=== PATIENT | female | born 1995 | race Native Hawaiian/Other Pacific Islander ===

== ENCOUNTER 2018-08-05 14:29 | Inpatient (IN) | payer OTHER ==
[2018-08-05 14:44] VITALS: O2SAT 100
--- NOTE | 2018-08-05 15:06 | ED PDOC ---
HPI: Psych/Substance Abuse Time Seen by Provider: 08/05/18 14:44 Chief Complaint (Nursing): Psychiatric Evaluation Chief Complaint (Provider): Psychiatric Evaluation History Per: Patient History/Exam Limitations: no limitations Onset/Duration Of Symptoms: Days (x4) Additional Complaint(s): 23 year old female presents to the ED for a psychiatric evaluation. Patient states she has not been on her [place], Lamictal and another medication that starts with "R". Patient reports she felt good but she has not been able to afford the medications. She sees a private psychiatrist for bipolar disorder. She further states, on Wednesday, she felt as if she was not able to speak and not able to comprehend what she was reading. She felt her left ear was being "cut up into little pieces". She also reports hearing her roommate call her even though he wasn't home. Patient also states whenever she looked outside of the building, she feels like she can fly but does not want to as it can hurt her. Denies suicidal ideation, homicidal ideation, headache, or hearing changes. Past Medical History Reviewed: Historical Data, Nursing Documentation, Vital Signs Vital Signs: Last Vital Signs Temp 99.1 F 08/05/18 14:37 Pulse 64 08/05/18 14:37 Resp 16 08/05/18 14:37 BP 127/63 08/05/18 14:37 Pulse Ox 100 08/05/18 14:37 - Medical History PMH: No Chronic Diseases - Surgical History Surgical History: No Surg Hx - Family History Family History: States: Unknown Family Hx - Home Medications Home Medications: Ambulatory Orders Medication Instructions Recorded DiphenhydrAMINE [Benadryl] 25 mg PO Q6 PRN 08/05/18 Wailuku Carbonate [Wailuku 600 mg PO HS 08/05/18 Carbonate 300MG] Risperidone [Risperdal] 0.75 mg PO HS 08/05/18 lamoTRIgine [Lamictal] 100 mg PO QAM 08/05/18 - Allergies Allergies/Adverse Reactions: Allergies Allergy/AdvReac Type Severity Reaction Status Date / Time No Known Allergies Allergy Verified 08/05/18 14:36 Review of Systems ROS Statement: Except As Marked, All Systems Reviewed And Found Negative Neurological: Negative for: Headache Psych: Positive for: Other (Hallucinations; no hearing changes). Negative for: Suicidal ideation (or homicidal ideation) Physical Exam - Reviewed Nursing Documentation Reviewed: Yes Vital Signs Reviewed: Yes - Physical Exam Appears: Positive for: No Acute Distress Head Exam: Positive for: ATRAUMATIC, NORMOCEPHALIC Skin: Positive for: Normal Color, Warm, Dry Eye Exam: Positive for: Normal appearance ENT: Positive for: Normal ENT Inspection Cardiovascular/Chest: Positive for: Regular Rate, Rhythm Respiratory: Positive for: Normal Breath Sounds. Negative for: Wheezing, Respiratory Distress Gastrointestinal/Abdominal: Positive for: Normal Exam, Soft. Negative for: Tenderness Extremity: Positive for: Normal ROM Neurologic/Psych: Positive for: Alert, Oriented (x3), Mood/Affect (calm and cooperative). Negative for: Motor/Sensory Deficits - Laboratory Results Result Diagrams: 08/05/18 17:54 08/05/18 17:54 - ECG O2 Sat by Pulse Oximetry: 100 (RA) Pulse Ox Interpretation: Normal Medical Decision Making Medical Decision Making: Initial Impression: Psychiatric Evaluation Initial Plan: --Crisis evaluation --ED urine --1:1 observation 17:09 Patient evaluated by Stephania who spoke with Dr. Tate who requests patient to be admitted with diagnosis of major depressive disorder. Scribe Attestation: Documented by David Bruce acting as a scribe for Amos STOLL Provider Scribe Attestation: All medical record entries made by the Scribe were at my direction and persona mimiy dictated by me. I have reviewed the chart and agree that the record accurately reflects my personal performance of the history, physical exam, medical decision making, and the department course for this patient. I have also personally directed, reviewed, and agree with the discharge instructions and disposition. Disposition - Clinical Impression Clinical Impression: Major depressive disorder - Patient ED Disposition Is Patient to be Admitted: Yes - Disposition Disposition Time: 17:09 Condition: FAIR
[2018-08-05 18:17] LABS: BASO # 0.1 K/uL (0.0-0.2); BASO % 0.9 % (0.0-2.0); EOS # 0.2 K/uL (0.0-0.7); EOS % 2.4 % (0.0-4.0); HEMOGLOBIN 12.7 g/dL (12.0-16.0); LYMPH # 2.5 K/uL (1.0-4.3); LYMPH % 36.1 % (20.0-40.0); MEAN CELL VOLUME 92.9 fl (81.0-99.0); MEAN CORPUSCULAR HEMOGLOBIN 30.8 pg (27.0-31.0); MEAN CORPUSCULAR HGB CONC 33.2 g/dL (33.0-37.0); MEAN PLATELET VOLUME 7.8 fl (7.2-11.7); MONO # 0.5 K/uL (0.0-0.8); MONO % 7.3 % (0.0-10.0); NEUT # 3.7 K/uL (1.8-7.0); NEUT % 53.3 % (50.0-75.0); RBC 4.12 Mil/uL (3.80-5.20); RED CELL DISTRIBUTION WIDTH 13.5 % (11.5-14.5); WHITE BLOOD COUNT 6.9 K/uL (4.8-10.8)
[2018-08-05 18:20] LABS: SQUAMOUS EPITHIAL 1 /hpf (0-5); URINE BILIRUBIN NEGATIVE (NEGATIVE); URINE BLOOD NEGATIVE (NEGATIVE); URINE CLARITY CLEAR (Clear); URINE COLOR YELLOW (YELLOW); URINE GLUCOSE (UA) NEG (NEGATIVE); URINE LEUKOCYTE ESTERASE NEG Leu/uL (Negative); URINE PROTEIN NEGATIVE (NEGATIVE); URINE UROBILINOGEN 0.2-1.0 mg/dL (0.2-1.0)
[2018-08-05 18:28] LABS: ALB/GLOB RATIO 1.5 (1.0-2.1); ALBUMIN 4.3 g/dL (3.5-5.0); ALT/SGPT 21 U/L (9-52); AST/SGOT 21 U/L (14-36); BLOOD UREA NITROGEN 16 mg/dl (7-17); CALCIUM 9.6 mg/dL (8.4-10.2); GFR NON-AFRICAN AMERICAN > 60
[2018-08-05 18:36] LABS: BARBITURATES, UR NEGATIVE (NEGATIVE); BENZODIAZEPINES, UR NEGATIVE (NEGATIVE); OPIATES, UR NEGATIVE (NEGATIVE); PHENCYCLIDINE, UR NEGATIVE (NEGATIVE)
[2018-08-05] MEDS ORDERED: Magnesium Hydroxide Susp 30 ml UD PO PRN (21:39)
[2018-08-05] MEDS ORDERED: DiphenhydrAMINE 50 mg/ml Inj IM PRN (21:39)
[2018-08-05] MEDS ORDERED: Alum-Mag Hydrox-Simethicone Susp (30 mL) PO PRN (21:39)
--- NOTE | 2018-08-05 22:30 | PCM.BM ---
<ShaiKarine Nick - Last Filed: 08/05/18 22:27> Treatment Plan Problems - Problems identified on initial assessmt Medication nonadherence Date Initiated: 08/05/18 Time Initiated: 22:28 Assessment reference: NA Status: Active Hoplessness/Helplessness Date Initiated: 08/05/18 Time Initiated: 22:29 Assessment reference: NA Status: Active Altered Sleep Patterns Date Initiated: 08/05/18 Time Initiated: 22:29 Assessment reference: NA Status: Active Treatment assets and liabiliti Patient Assests: adapts well, cooperative, educated, insightful, motivated, self-reliant, ADL independent, physically healthy, good support system, negotiates basic needs, financial stabiity Patient Liabilities: live alone, other (medication nonadherence) - Milieu Protocol Maintain good personal hygiene: daily Encourage regular showers, every shift Remind patient to perform daily oral care Conduct patient checks and document Observation sheet: Q15 minutes Maintain personal safety: every shift Educate patient to report safety concerns to staff, every shift Monitor environment for contraband/sharps Medication safety: Monitor for expected outcome, potential side effects: every shift, Assess barriers to learning: every shift, Assess readiness for medication education: every shift <Reed Sepulveda - Last Filed: 08/07/18 16:00> Family Contact Family involvement: Family/SO is involved Family contact name: Family resides in [place]. - Goals for Treatment Patient goals for treatment: Pt would like to be re-stabilized on medications and have her diagnosis discussed so she can be an informed participant in her own care. Discharge/Continuing Care - Education Needs Education Needs: Patient Medication, Patient Diagnosis/Disease Process, Patient Coping Skills, Patient Aftercare Safety Plan - Discharge Discharge Criteria: Tolerates medication w/o severe side effects, Free of Suicidal thoughts, Free of paranoid thoughts, Free of agitation, Normal sleep pattern, Ability to care for self, Reduction of target symptoms Discharge to:: Home - Treatment Team Participation Discussed with Family/SO: No Was Patient/Family/SO present at Treatment Team Meeting: Yes <Apurva Huggins - Last Filed: 08/08/18 13:56> Discharge/Continuing Care - Treatment Team Participation Patient/Family/SO Statement: 08/08/18 13:56 Pt. attended tx team this morning to discuss progress on 3NP and tx goals. Pt. reported improvement in thought process as exhibited by absence of delusions, explaining I dont think there are worms in my hands anymore. Pt. reported feelings of hopelessness and sadness upon waking up but reported alleviation of feelings as the morning progressed. Pt. denied SI/HI and was able to contract for safety on 3NP. Pt. reported ongoing sleep disturbances (broken sleep) secondary to intrusive negative thoughts regarding inability to find employment of perform well in school. Emotional support and validation provided. Recommended medications regimen discussed. Pt. agreeable to recommendations and expressed being motivated for tx. <Carli Tate - Last Filed: 08/09/18 13:27> - Diagnosis (1) Bipolar II disorder, severe, depressed, with mood-congruent psychotic features, in full remission Status: Acute Interventions: psychotherapy , pharmacotherapy 08/09/18 13:27
--- NOTE | 2018-08-06 13:19 | PCM.PSYCH ---
Initial Psychiatric Evaluation - Initial Psychiatric Evaluation Type of Admission: Voluntary Legal Status: Capacity Chief Complaint (in patient's own words): I constantly think about ending my life History of Present Illness and Precipitating Events: pt is 23 ys old female with previous psychiatric diagnosis of bipolar disorder, non compliant with treatment was referred to ER by school counselor due to having suicidal ideation with plan to cut her wrist and also having delusional thought process pt reported having depression since she was teen age , first treatment was four months ago diagnosed with bipolar and placed on lamictal, has not been compliant lately with medications reported increased depression, poor motivation, low energy and poor concentration , feeling her life has no purpose, experiencing continuous thoughts of needing to end her life pt also started having delusional thought process stating that she wanted to jump off the building and checking if she can fly pt continues to have passive suicidal ideation feeling her life has no purpose, denied active plan on the unit , reported non command auditory hallucinations, no reported substance use Current Medications: Active Medications Generic Name Dose Route Start Last Admin Trade Name Freq PRN Reason Stop Dose Admin Acetaminophen 650 mg 08/05/18 21:39 Tylenol 325mg Tab PO Q4 PRN Pain, moderate (4-7) Al Hydrox/Mg Hydrox/Simethicone 30 ml 08/05/18 21:39 Maalox Plus 30 Ml PO Q4 PRN Dyspepsia Aripiprazole 5 mg 08/06/18 13:04 Abilify PO 08/06/18 13:05 STAT STA Aripiprazole 5 mg 08/07/18 09:00 Abilify PO DAILY ANGE Diphenhydramine HCl 50 mg 08/05/18 21:39 Benadryl IM Q6 PRN Extrapyramidal S/S Unable PO Diphenhydramine HCl 50 mg 08/05/18 21:39 Benadryl PO Q6 PRN Extrapyramidal Symptoms Diphenhydramine HCl 50 mg 08/05/18 21:47 Benadryl PO HS PRN Sleep Haloperidol 5 mg 08/05/18 21:39 Haldol PO Q4 PRN Agitation Haloperidol Lactate 5 mg 08/05/18 21:39 Haldol IM Q4 PRN Agitation, Unable to Take PO Lorazepam 2 mg 08/05/18 21:39 Ativan IM Q4 PRN Anxiety/Agitation,Unable PO Lorazepam 1 mg 08/05/18 21:39 Ativan PO Q8 PRN Anxiety/Agitation Magnesium Hydroxide 30 ml 08/05/18 21:39 Milk Of Magnesia PO HS PRN Constipation Past Psychiatric History - Past Psychiatric History Explanation of prior treatment: no hx of previous hospitalizations, has seen a counselor and private ps ychiatrist, non compliant History of Abuse: denied History of Family Illness: mother / ocd aunt / bipolar grandmother / schizophrenia Pertinent Medical Hx (Current Medical&Sleep Prob, Allergies): Allergies Allergy/AdvReac Type Severity Reaction Status Date / Time No Known Allergies Allergy Verified 08/05/18 14:36 DiphenhydrAMINE [Benadryl] 25 mg PO Q6 PRN 08/05/18 [place] Carbonate [[place]ler Carbonate 300MG] 600 mg PO HS 08/05/18 Risperidone [Risperdal] 0.75 mg PO HS 08/05/18 lamoTRIgine [Lamictal] 100 mg PO QAM 08/05/18 Mental Status Examination - Personal Presentation Personal Presentation: Looks stated age - Affect Affect: Constricted, Depressed - Motor Activity Motor Activity: Psychomotor Retardation - Reliability in Providing Information Reliability in Providing Information: Fair - Speech Speech: Relevant - Mood Mood: Depressed - Formal Thought Process Formal Thought Process: Hallucinations - Hallucinations/Delusions Hallucinations: Auditory - Obsessions/Compulsions Obsessions: No Compulsions: No - Cognitive Functions Orientation: Person, Place, Situation Sensorium: Alert Attention/Concentration: Attentive - Risk Risk: Suicidal, Diminished functioning - Strength & Assets Inventory Strength & Assets Inventory: Intelligence, Education - Limitations Limitations: Living alone DSM 5 DX - DSM 5 DSM 5 Diagnosis: major depression severe with psychotic features rule out bipolar II disorder - Recommended/Plan of Treatment Treatment Recommendations and Plan of Treatment: start abilify 5mg daily/ increase gradually cbt group and supportive therapy
--- NOTE | 2018-08-06 14:39 | CP.PCM.CON ---
History of Present Illness - History of Present Illness History of Present Illness: Reason for Consult: Per hospital protocol HPI: 23 year old female PMH bipolar disorder admitted for suicidal ideation. No other complaints at this time, HD stable, NAD. ROS: Per HPI, all other systems reviewed and neg Past Patient History - Past Social History Smoking Status: Never Smoked - CARDIAC Hx Cardiac Disorders: No Hx Hypertension: No - PULMONARY Hx Respiratory Disorders: No Hx Tuberculosis: No - NEUROLOGICAL Hx Neurological Disorder: No HX Cerebrovascular Accident: No Hx Seizures: No - HEENT Hx HEENT Problems: No - RENAL Hx Chronic Kidney Disease: No - ENDOCRINE/METABOLIC Hx Endocrine Disorders: No - HEMATOLOGICAL/ONCOLOGICAL Hx Blood Disorders: No Hx Cancer: No Hx Human Immunodeficiency Virus (HIV): No - INTEGUMENTARY Hx Dermatological Problems: No - MUSCULOSKELETAL/RHEUMATOLOGICAL Hx Musculoskeletal Disorders: No - GASTROINTESTINAL Hx Gastrointestinal Disorders: No - GENITOURINARY/GYNECOLOGICAL Hx Genitourinary Disorders: No Hx Sexually Transmitted Disorders: No - PSYCHIATRIC Hx Anxiety: Yes Hx Bipolar Disorder: Yes Hx Depression: Yes - SURGICAL HISTORY Hx Surgeries: No - ANESTHESIA Hx Anesthesia: No Meds Allergies/Adverse Reactions: Allergies Allergy/AdvReac Type Severity Reaction Status Date / Time No Known Allergies Allergy Verified 08/05/18 14:36 - Medications Medications: Current Medications Acetaminophen (Tylenol 325mg Tab) 650 mg PO Q4 PRN PRN Reason: Pain, moderate (4-7) Al Hydrox/Mg Hydrox/Simethicone (Maalox Plus 30 Ml) 30 ml PO Q4 PRN PRN Reason: Dyspepsia Aripiprazole (Abilify) 5 mg PO DAILY ANGE Diphenhydramine HCl (Benadryl) 50 mg IM Q6 PRN PRN Reason: Extrapyramidal S/S Unable PO Diphenhydramine HCl (Benadryl) 50 mg PO Q6 PRN PRN Reason: Extrapyramidal Symptoms Diphenhydramine HCl (Benadryl) 50 mg PO HS PRN PRN Reason: Sleep Haloperidol (Haldol) 5 mg PO Q4 PRN PRN Reason: Agitation Haloperidol Lactate (Haldol) 5 mg IM Q4 PRN PRN Reason: Agitation, Unable to Take PO Lorazepam (Ativan) 2 mg IM Q4 PRN PRN Reason: Anxiety/Agitation,Unable PO Lorazepam (Ativan) 1 mg PO Q8 PRN PRN Reason: Anxiety/Agitation Magnesium Hydroxide (Milk Of Magnesia) 30 ml PO HS PRN PRN Reason: Constipation Trazodone HCl (Desyrel) 50 mg PO HS ANGE Physical Exam - Constitutional Additional comments: GEN: WDWN, alert, cooperative HEENT: NCAT, PERRL, EOMI HEART: RRR, +S1S2, NO MRG LUNG: CTAB, NO WRR ABD: soft, NT, ND, No HSM, No masses EXT: normal pedal pulses NEURO: awake, alert SKIN: warm, dry PSYCH: normal mood, normal affect Results - Vital Signs Recent Vital Signs: Last Vital Signs Temp 97.1 F L 08/06/18 09:38 Pulse 74 08/06/18 09:38 Resp 18 08/06/18 09:38 BP 109/65 08/06/18 09:38 Pulse Ox 100 08/05/18 23:57 - Labs Result Diagrams: 08/05/18 17:54 08/05/18 17:54 Labs: Laboratory Results - last 24 hr 08/05/18 08/05/18 08/05/18 17:54 17:54 17:54 WBC 6.9 RBC 4.12 Hgb 12.7 Hct 38.3 MCV 92.9 MCH 30.8 MCHC 33.2 RDW 13.5 Plt Count 264 MPV 7.8 Neut % (Auto) 53.3 Lymph % (Auto) 36.1 [place] % (Auto) 7.3 Eos % (Auto) 2.4 Baso % (Auto) 0.9 Neut # (Auto) 3.7 Lymph # (Auto) 2.5 [place] # (Auto) 0.5 Eos # (Auto) 0.2 Baso # (Auto) 0.1 Sodium 137 Potassium 4.2 Chloride 102 Carbon Dioxide 23 Anion Gap 16 BUN 16 Creatinine 0.5 L Est GFR ( Amer) > 60 Est GFR (Non-Af Amer) > 60 Random Glucose 85 Calcium 9.6 Total Bilirubin 0.2 AST 21 ALT 21 Alkaline Phosphatase 42 Total Protein 7.1 Albumin 4.3 Globulin 2.8 Albumin/Globulin Ratio 1.5 Triglycerides Cholesterol LDL Cholesterol Direct HDL Cholesterol Thyroxine (T4) TSH 3rd Generation Urine Color Urine Clarity Urine pH Ur Specific [place] Urine Protein Urine Glucose (UA) Urine Ketones Urine Blood Urine Nitrate Urine Bilirubin Urine Urobilinogen Ur Leukocyte Esterase Urine RBC (Auto) Urine Microscopic WBC Ur Squamous Epith Cells Urine Opiates Screen Negative Urine Methadone Screen Negative Ur Barbiturates Screen Negative Ur Phencyclidine Scrn Negative Ur Amphetamines Screen Negative U Benzodiazepines Scrn Negative [place] U Oth Cocaine Metabols Negative U Cannabinoids Screen Negative Alcohol, Quantitative < 10 08/05/18 08/05/18 08/06/18 17:54 18:00 06:25 WBC RBC Hgb Hct MCV MCH MCHC RDW Plt Count MPV Neut % (Auto) Lymph % (Auto) [place] % (Auto) Eos % (Auto) Baso % (Auto) Neut # (Auto) Lymph # (Auto) [place] # (Auto) Eos # (Auto) Baso # (Auto) Sodium Potassium Chloride Carbon Dioxide Anion Gap BUN Creatinine Est GFR ( Amer) Est GFR (Non-Af Amer) Random Glucose Calcium Total Bilirubin AST ALT Alkaline Phosphatase Total Protein Albumin Globulin Albumin/Globulin Ratio Triglycerides 107 Cholesterol 186 LDL Cholesterol Direct 91 HDL Cholesterol 79 H Thyroxine (T4) 8.55 TSH 3rd Generation 1.33 Urine Color Yellow Urine Clarity Clear Urine pH 6.0 Ur Specific [place] 1.023 Urine Protein Negative Urine Glucose (UA) Neg Urine Ketones Negative Urine Blood Negative Urine Nitrate Negative Urine Bilirubin Negative Urine Urobilinogen 0.2-1.0 Ur Leukocyte Esterase Neg Urine RBC (Auto) 1 Urine Microscopic WBC < 1 Ur Squamous Epith Cells 1 Urine Opiates Screen Urine Methadone Screen Ur Barbiturates Screen Ur Phencyclidine Scrn Ur Amphetamines Screen U Benzodiazepines Scrn [place] < 0.2 L U Oth Cocaine Metabols U Cannabinoids Screen Alcohol, Quantitative Assessment & Plan - Assessment and Plan (Free Text) Plan: 23 year old female H bipolar disorder admitted for suicidal ideation. No other complaints at this time, HD stable, NAD. Suicidal Ideation management per psych
--- NOTE | 2018-08-07 12:10 | PCM.PYCHPN ---
Psychiatric Progress Note - Psychiatric Progress Note Patient seen today, length of contact: pt evaluated discussed with team chart reviewed Patient Chief Complaint: there were times I thought my ear fell into pieces Problems Identified/Issues Discussed: pt evaluated, reported feeling better thought process continues to exhibit somatic delusions, speech over productive at times with inappropriate affect, pt denied side effects of medications, discussed increasing dose of abilify gradually, pt denied command hallucinations, continues to report passive suicidal ideation, as she feels has no hope in reaching her life goals, denied active thoughts of self harm on the unit Medical Problems: no hx of previous hospitalizations, has seen a counselor and private psychiatrist, non compliant DSM 5 Symptoms Update: major depression with psychotic features Medication Change: Yes Medical Record Reviewed: Yes Mental Status Examination - Cognitive Function Orientation: Person, Place, Situation Attention: WNL Concentration: WNL Association: WNL Fund of Knowledge: WNL Decription of patient's judgement and insights: partial insight fair judgment - Mood Mood: Depressed - Affect Affect: Constricted, Depressed - Speech Speech: Soft - Formal Thought Process Formal Thought Process: Hallucinations, Delusions, Circumstantial - Suicidal Ideation Suicidal Ideation: Yes - Homicidal Ideation Homicidal Ideation: No Goal/Treatment Plan - Goal/Treatment Plan Need for Continued Stay: Severe depression anxiety, Discharge may exacerbated symptoms Progress Toward Problem(s) and Goals/Treatment Plan: increase abilify 7mg daily/ increase gradually cbt group and supportive therapy
--- NOTE | 2018-08-08 13:18 | PCM.PYCHPN ---
Psychiatric Progress Note - Psychiatric Progress Note Patient seen today, length of contact: pt evaluated discussed with team chart reviewed Patient Chief Complaint: I saw worms on my hand yesterday but i know it is not real Problems Identified/Issues Discussed: pt evaluated with treatment team, stated she experienced suicidal ideation this morning without a plan but felt overwhelming sadness part of it related to her inability to function in school and feeling like she is wasting her parents money in vain . pt also reported experiencing somatic delusions feeling as if there are worms on her hands yet she was able to rationalize with herself that this is not true she spoke about her mood swings prior to admission being at times depressed with very poor motivation to the point that she could not even brushing her teeth alternating with periods of hyperactivity and high energy, she can sleep two hours but able to finish a lot of work discussed with pt the possible diagnosis of bipolar II , discussed the therapeutic effect of abilify, no reported current side effects pt denied current active thoughts of self harm, denied command hallucinations Medical Problems: no hx of previous hospitalizations, has seen a counselor and private psychiatrist, non compliant DSM 5 Symptoms Update: bipolar II disorder MRE depressed severe with psychotic features Medication Change: No Medical Record Reviewed: Yes Mental Status Examination - Cognitive Function Orientation: Person, Place, Situation Attention: WNL Concentration: WNL Association: WNL Fund of Knowledge: [facility] Decription of patient's judgement and insights: partial insight fair judgment - Mood Mood: Depressed - Affect Affect: Constricted, Depressed - Speech Speech: Soft - Formal Thought Process Formal Thought Process: Hallucinations, Delusions, Circumstantial - Suicidal Ideation Suicidal Ideation: Yes - Homicidal Ideation Homicidal Ideation: No Goal/Treatment Plan - Goal/Treatment Plan Need for Continued Stay: Severe depression anxiety, Discharge may exacerbated symptoms Progress Toward Problem(s) and Goals/Treatment Plan: increase [id number] [id number] cbt group and supportive therapy
--- NOTE | 2018-08-08 16:35 | CARD ---
APPROVED REPORT Date of service: 08/07/2018 EKG Measurement Heart [id number] <Conclusion> Sinus bradycardia Otherwise normal ECG
--- NOTE | 2018-08-09 14:46 | PCM.PYCHPN ---
Psychiatric Progress Note - Psychiatric Progress Note Patient seen today, length of contact: pt evaluated discussed with team chart reviewed Patient Chief Complaint: I slept a little better yesterday Problems Identified/Issues Discussed: pt evaluated , reported improved sleep with trazodone, reported clearing of the delusions yet she feels anxious and worried about the return of symptoms, pt continues to have episodes of feeling down mainly during morning hours, but denied any current active thoughts of self harm, no reported side effects of medications , denied command hallucinations Medical Problems: no hx of previous hospitalizations, has seen a counselor and private psychiatrist, non compliant DSM 5 Symptoms Update: bipolar II disorder depressed with psychotic features Medication Change: No Medical Record Reviewed: Yes Mental Status Examination - Cognitive Function Orientation: Person, Place, Situation Attention: WNL Concentration: WNL Association: WNL Fund of Knowledge: WN Decription of patient's judgement and insights: partial insight fair judgment - Mood Mood: Depressed - Affect Affect: Constricted, Depressed - Speech Speech: Soft - Formal Thought Process Formal Thought Process: Hallucinations, Delusions, Circumstantial - Suicidal Ideation Suicidal Ideation: No - Homicidal Ideation Homicidal Ideation: No Goal/Treatment Plan - Goal/Treatment Plan Need for Continued Stay: Severe depression anxiety, Discharge may exacerbated symptoms Progress Toward Problem(s) and Goals/Treatment Plan: [id number] qhs trazodone 50 mg qhs cbt group and supportive therapy
--- NOTE | 2018-08-10 14:08 | PCM.PYCHPN ---
Psychiatric Progress Note - Psychiatric Progress Note Patient seen today, length of contact: pt evaluated discussed with team chart reviewed Patient Chief Complaint: I started having racing thoughts at night Problems Identified/Issues Discussed: pt evaluated , reported having racing thoughts at night making her anxious feeling like her maura is crowded with ideas with difficulty to concentrate, pt reported decrease in her depression, rated it 3/10, reported she has not experienced any suicidal ideation for past few days discussed increasing dose of abilify to help with racing thoughts, also CBT provided discussed with patient relaxation techniques and coping skills to help dealing with the racing thoughts and the increased anxiety no reported side effects of medications , pt denied any current delusions or perceptual disturbances Medical Problems: no hx of previous hospitalizations, has seen a counselor and private psychiatrist, non compliant DSM 5 Symptoms Update: Bipolar II disorder mixed severe Medication Change: Yes (increase abilify) Medical Record Reviewed: Yes Mental Status Examination - Cognitive Function Orientation: Person, Place, Situation Attention: WNL Concentration: WNL Association: WNL Fund of Knowledge: WN Decription of patient's judgement and insights: partial insight fair judgment - Mood Mood: Depressed - Affect Affect: Constricted, Depressed - Speech Speech: Soft - Formal Thought Process Formal Thought Process: Delusions, Circumstantial - Suicidal Ideation Suicidal Ideation: No - Homicidal Ideation Homicidal Ideation: No Goal/Treatment Plan - Goal/Treatment Plan Need for Continued Stay: Severe depression anxiety, Discharge may exacerbated symptoms Progress Toward Problem(s) and Goals/Treatment Plan: increase [id number] qhs trazodone 50 mg qhs cbt group and supportive therapy
[2018-08-10 16:32] VITALS: RESP 18
[2018-08-11 09:06] VITALS: BP 114/63; PULSE 82; TEMP 98.2
--- NOTE | 2018-08-11 10:23 | PCM.PYCHDC ---
Mental Status Examination - Mental Status Examination Orientation: Person, Place, Situation Mood: Neutral Affect: Broad Speech: Appropriate Attention: WNL Concentration: WNL Association: WNL Fund of Knowledge: WNL Formal Thought Process: No Impairment Description of patient's judgement and insight: partial insight fair judgment Psychotic Thoughts and Behaviors: pt on discharge denied any psychotic symptoms, non elicited Suicidal Ideation: No Current Homicidal Ideation?: No Discharge Summary - Discharge Note Reason for Hospitalization: pt is 23 ys old female with previous psychiatric diagnosis of bipolar disorder, non compliant with treatment was referred to ER by school counselor due to having suicidal ideation with plan to cut her wrist and also having delusional thought process pt reported having depression since she was teen age , first treatment was four months ago diagnosed with bipolar and placed on lamictal, has not been compliant lately with medications reported increased depression, poor motivation, low energy and poor concentration , feeling her life has no purpose, experiencing continuous thoughts of needing to end her life pt also started having delusional thought process stating that she wanted to jump off the building and checking if she can fly pt continues to have passive suicidal ideation feeling her life has no purpose, denied active plan on the unit , reported non command auditory hallucinations, no reported substance use Consultations:: List each consultation separately and include: 1. Reason for request. 2. Findings. 3. Follow-up Summary of Hospital Course include:: 1. Description of specific treatment plan utilized for patients during their course of treatmen. 2. Summarize the time- course for resolution of acute symptoms and/or regressed behaviors. 3. Describe issues identified and worked on during hospitalization. 4. Describe medication utilized. 5. Describe medical problems identified and treated. 6. Reassessment of suicide risk Summary of Hospital Course: pt on admission presented with depressed mood and affect, passive suicidal ideation without a plan , reported somatic delusions including feeling that her ear fell off into pieces and that she at times could see and feel worms moving on her hand pt also reported previous episodes when she would be hypomanic with increased energy, hyperactive and only needs two hours of sleep, pt was started on abilify , it was gradually increased to 15mg qhs, she was also started on trazodone for insomnia CBT group and supportive therapy was provided pt was compliant with medications, no reported side effects she gradually reported clearing off of the delusions and the suicidal ideation pt was able to verbalize coping skills with stress on discharge her mental status was stable , pt denied any current suicidal or homicidal ideation denied psychotic symptoms follow up was arranged by marriage and family social worker at outpatient - Diagnosis (1) Bipolar II disorder, severe, depressed, with mood-congruent psychotic features, in full remission Current Visit: Yes Status: Acute - Final Diagnosis (DSM 5) Condition upon Discharge: GOOD DSM 5: Bipolr III disorder MRE depressed severe with psychotic features Disposition: HOME/ ROUTINE Follow-up Treatment Plan: increase [id number] qhs trazodone 50 mg qhs cbt group and supportive therapy Prescriptions/Medication Reconciliation: ARIPiprazole [Abilify] 15 mg PO HS 30 Days #90 tab traZODone [Desyrel] 50 mg PO HS 30 Days #30 tab - Antipsychotic Medications Pt discharged on 2 or more routine antipsychotic medications: No
== END 2018-08-11 11:55 | disposition home or self-care (01) | DRG 753 ==
LOC: H.ER 14:29 → H.ERHOLD 19:34 → H.PSYCH 21:29
PROVIDERS: ADMIT Psychiatry & Neurology Psychiatry; ATTEND Psychiatry & Neurology Psychiatry
PROC: GZHZZZZ Group Psychotherapy (ICD-10-PCS; principal; 2018-08-05)
PROC: GZ58ZZZ Individual Psychotherapy, Cognitive-Behavioral (ICD-10-PCS; 2018-08-05)
DX: F31.81 Bipolar II disorder (principal); R45.851 Suicidal ideations; Z91.19 Patient's noncompliance with other medical treatment and regimen; F41.9 Anxiety disorder, unspecified; G47.00 Insomnia, unspecified; Z81.8 Family history of other mental and behavioral disorders

== ENCOUNTER 2018-09-19 21:02 | Emergency (ER) | payer OTHER ==
[2018-09-19 21:17] VITALS: RESP 16; TEMP 97.7
--- NOTE | 2018-09-19 22:25 | ED PDOC ---
HPI: Hypertension/Hypotension Time Seen by Provider: 09/19/18 22:06 Chief Complaint (Nursing): Palpitations Chief Complaint (Provider): palpitations History Per: Patient History/Exam Limitations: no limitations Onset/Duration Of Symptoms: Mins Current Symptoms Are (Timing): Gone Now Associated Symptoms: Dizziness Quality Of Symptoms: Rapid Heart Rate Additional Complaint(s): 23 y/o female presents for evaluation of palpitations x 30 mins. Patient states she was sitting in class when she felt her heart "beating rapidly". Patient admits to feeling anxious at that time. Patient states she takes Abilify, Seroquel, and Propranolo and states she is usually compliant with them but that she forgot to take both doses of her Propranolol (one in the morning and one at lunch time) today. Patient reports symptoms have now resolved. Patient denies headache, dizziness, extremity numbness/weakness, chest pain, shortness of breath, palpitations, leg pain/swelling. PAtient denies suicidal/homicidal ideations, hallucinations. Past Medical History Reviewed: Historical Data, Nursing Documentation, Vital Signs Vital Signs: Last Vital Signs Temp 97.7 F 09/19/18 21:13 Pulse 67 09/19/18 21:13 Resp 16 09/19/18 21:13 BP 119/77 09/19/18 21:13 Pulse Ox 99 09/19/18 21:13 - Medical History PMH: Anxiety, Bipolar Disorder, Depression Denies: Diabetes, Hepatitis, HIV, HTN, Chronic Kidney Disease, Seizures, Sexually Transmitted Disease - Surgical History Surgical History: No Surg Hx - Family History Family History: States: Unknown Family Hx - Home Medications Home Medications: Ambulatory Orders Medication Instructions Recorded [place] Carbonate [[place] 600 mg PO HS 08/05/18 Carbonate 300MG] Risperidone [Risperdal] 0.75 mg PO HS 08/05/18 ARIPiprazole [Abilify] 15 mg PO HS 30 Days #90 tab 08/11/18 traZODone [Desyrel] 50 mg PO HS 30 Days #30 tab 08/11/18 - Allergies Allergies/Adverse Reactions: Allergies Allergy/AdvReac Type Severity Reaction Status Date / Time No Known Allergies Allergy Verified 08/05/18 14:36 Review of Systems ROS Statement: Except As Marked, All Systems Reviewed And Found Negative Cardiovascular: Positive for: Palpitations Psych: Positive for: Anxiety Physical Exam - Reviewed Nursing Documentation Reviewed: Yes Vital Signs Reviewed: Yes - Physical Exam Appears: Positive for: Well, Non-toxic, No Acute Distress (sleeping) Head Exam: Positive for: ATRAUMATIC, NORMAL INSPECTION, NORMOCEPHALIC Skin: Positive for: Normal Color Eye Exam: Positive for: Normal appearance ENT: Positive for: Normal ENT Inspection Cardiovascular/Chest: Positive for: Regular Rate, Rhythm Respiratory: Positive for: Normal Breath Sounds Gastrointestinal/Abdominal: Positive for: Normal Exam Back: Positive for: Normal Inspection Extremity: Positive for: Normal ROM Neurological/Psych: Positive for: Awake, Alert, Oriented (x3) - ECG ECG: Positive for: Viewed By Me (reviewed by ED attending) ECG Rhythm: Positive for: Sinus Rhythm O2 Sat by Pulse Oximetry: 99 - Progress ED Course And Treament: -ekg -diagnostic cardiac sonographer Patient sleeping. States palpitations resolved and she is feeling better and would like to go home. Vitals stable on monitor Patient educated on findings, discharged with instructions to follow up with PMD/psychiatrist. Advised to take Propranolol as prescribed Return precautions given Disposition - Clinical Impression Clinical Impression: Palpitations - Patient ED Disposition Is Patient to be Admitted: No Counseled Patient/Family Regarding: Studies Performed, Diagnosis, Need For Followup - Disposition Disposition: Routine/Home Disposition Time: 22:41 Condition: IMPROVED Instructions: Palpitations Forms: [employer] ([place]ian)
[2018-09-19 22:53] VITALS: BP 121/68; PULSE 64; O2SAT 100
--- NOTE | 2018-09-20 21:10 | CARD ---
APPROVED REPORT Date of service: 09/19/2018 EKG Measurement Heart [id number] <Conclusion> Normal sinus rhythm Normal ECG
== END 2018-09-19 23:07 | disposition home or self-care (01) ==
LOC: H.ER 21:02
DX: R00.2 Palpitations (principal); Z86.59 Personal history of other mental and behavioral disorders; I10 Essential (primary) hypertension